=== PATIENT | female | born 1940 | race Caucasian/White ===

== ENCOUNTER 2017-02-28 10:00 | Outpatient (CLI) | payer OTHER ==
[2017-02-28 10:45] LABS: eGFR (African) > 60; eGFR (Non-African) > 60
== END 2017-02-28 10:02 ==
LOC: LAB 10:00
PROVIDERS: ATTEND Family Medicine
DX: E78.2 Mixed hyperlipidemia (principal); E55.9 Vitamin D deficiency, unspecified
CPT/HCPCS: 36415; 80053; 80061; 82306

== ENCOUNTER 2017-05-06 15:46 | Outpatient (CLI) | payer OTHER ==
--- NOTE | 2017-05-06 16:23 | Diagnostic Imaging Report ---
[facility] [address] [facility].[address] [id number] Report Submission Date: May 06, 2017 4:15:23 PM CDT Patient Study Name: RACHAEL HE Date: May 06, 2017 3:49:20 PM CDT Modality Type: CR Gender: F Description: SHOULDER : 44 Institution: [facility] Physician: OLIVER RODRIGUEZ - RHONDA Examination: Plain film shoulder History: Discomfort Comparison exams: None provided Findings: 2 views of the shoulder demonstrates articular degenerative changes with subchondral cyst formation. Inferior ossific spur. Cortical margin sclerosis. No fracture. Acromioclavicular joint degenerative changes. No dislocation. Impression: Articular degenerative changes. No fracture. If suspect soft tissue abnormality, consider obtaining MRI. Electronically signed on May 06, 2017 4:15:23 PM CDT by: Jamar CRESPO
== END 2017-05-06 16:30 ==
LOC: RAD 15:46
PROVIDERS: ATTEND Family Medicine
DX: M25.511 Pain in right shoulder (principal); G89.29 Other chronic pain
CPT/HCPCS: 73030

== ENCOUNTER 2017-10-01 12:27 | Outpatient (CLI) | payer OTHER ==
--- NOTE | 2017-10-01 13:04 | Diagnostic Imaging Report ---
LESVIA DE DIOS [facility] [address] [facility] [address] [place], [place]. [address] Report Submission Date: Oct 01, 2017 12:58:11 PM SECURITY COMPLIANCE SPECIALIST Patient Study Name: RACHAEL HE Date: Oct 01, 2017 12:43:04 PM SECURITY COMPLIANCE SPECIALIST Modality Type: CR Gender: F Description: CHEST : 44 Institution: [facility] Physician: LESVIA DE DIOS Examination: PA and lateral chest. History: Evaluate lung daly. Comparison exam: None provided Findings: PA lateral chest demonstrate a normal cardiac and mediastinal silhouette. Hilar granuloma. No focal infiltrate. No blunting of the costophrenic margins. Osseous structures are appropriate for age. Impression: No acute appearing pulmonary process. Electronically signed on Oct 01, 2017 12:58:11 PM SECURITY COMPLIANCE SPECIALIST by: Jamar CRESPO
== END 2017-10-01 12:30 ==
LOC: RAD 12:27
PROVIDERS: ATTEND Otolaryngology
DX: R05 Cough (principal)
CPT/HCPCS: 71020

== ENCOUNTER 2017-10-29 09:16 | Outpatient (CLI) | payer OTHER | END 2017-10-29 09:17 | LOC: LAB 09:16 | PROVIDERS: ATTEND Family Medicine | DX: E55.9 Vitamin D deficiency, unspecified (principal) | CPT/HCPCS: 36415; 82306 ==

== ENCOUNTER 2018-03-13 08:12 | Outpatient (CLI) | payer OTHER ==
[2018-03-13 09:34] LABS: eGFR (African) > 60; eGFR (Non-African) > 60
== END 2018-03-13 08:20 ==
LOC: LAB 08:12
PROVIDERS: ATTEND Family Medicine
DX: E78.2 Mixed hyperlipidemia (principal)
CPT/HCPCS: 36415; 80053; 80061

== ENCOUNTER 2018-03-19 14:18 | Outpatient (CLI) | payer OTHER ==
--- NOTE | 2018-03-27 09:42 | OP Clinic Progress Note ---
REASON FOR VISIT: This pleasant 77-year-old lady is seen with a whitish change and a mass sensation on the left side of her throat. It has not caused pain. She has noted it for several months. It is not particularly getting worse. Both tonsils seem to be about the same size. 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 The left side in the upper pole has more of a whitish foul necrotic exudate and the patient sometimes feels a foul -type of sensation in her mouth. The neck has no gross cervical lymphadenopathy. With a good LED light, I can see both tonsillar crypts. When pushing on them, I do not see evidence of what I would consider to be a type of cancer. I simply see whitish curdly exudates consistent with "tonsilloliths" or simply foul necrotic exudates in the deep crypts that she has. PLAN: I reviewed these issues with the patient. At this point, I do not see evidence of this being evidently malignant. I have gone over options and choices which could be, again, a larger biopsy of this but, again, it just does not have an evident appearance of malignancy. Nevertheless, I reviewed that if the lumpy sensation or whitish exudates or any symptoms seem to be worse whatsoever, the patient should return. The patient feels comfortable with these options and choices. She declined additional opinions. This looks more like foul necrotic exudates and tonsillar crypts and it does not look like any type of malignancy and the patient does not have significant risk factors in this regard. The patient is comfortable with this plan and if symptoms persist or slightly worsen or if she feels like there is any swelling in the neck, she would return and she is comfortable with this plan. cc: Dr. Willow CRESPO
== END 2018-03-19 14:20 ==
LOC: ENT 14:18
PROVIDERS: ATTEND Otolaryngology
DX: J03.90 Acute tonsillitis, unspecified (principal)
CPT/HCPCS: 99213